=== PATIENT | male | born 1960 | race Caucasian/White ===

== ENCOUNTER 2019-11-03 12:07 | Emergency (ER) | payer OTHER ==
[~2019-11-03] VITALS: Ht 170.2 cm; Wt 69.0 kg
[2019-11-03 13:51] LABS: ABSOLUTE NEUTROPHILS 2.4 thou/uL (1.4-8.2); EOSINOPHILS 0.9 % (0.0-3.0); HEMATOCRIT 43.1 % (42.0-52.0); HEMOGLOBIN 14.8 gm/dL (14.0-18.0); MCH 31.5 pg (26.0-34.0); MCHC 34.3 g/dL (28.0-37.0); MONOCYTES 9.3 % (1.0-8.0); POLYS 55.8 % (36.0-66.0); RBC 4.69 mil/uL (4.50-6.00); RDW 12.7 % (10.5-14.5); WBC 4.3 thou/uL (4.0-11.0)
[2019-11-03 13:57] LABS: ANION GAP 10 mmol/L (7-16); BUN 10 mg/dL (7-18); CALCIUM 8.2 mg/dL (8.5-10.1); CHLORIDE 98 mmol/L (98-107); CO2 23 mmol/L (21-32); CREATININE 0.9 mg/dL (0.7-1.3); GLUCOSE 113 mg/dL (74-106); POTASSIUM 3.1 mmol/L (3.5-5.1); SODIUM 131 mmol/L (136-145)
[2019-11-03 14:07] LABS: ALBUMIN 2.7 g/dL (3.4-5.0); LIPASE 289 U/L (73-393); SGOT 191 U/L (15-37); SGPT 105 U/L (30-65); TOTAL BILIRUBIN 1.8 mg/dL (0.2-1.0); TOTAL PROTEIN 7.4 g/dL (6.4-8.2); TROPONIN-I <0.06 ng/mL (<0.06)
[2019-11-03 14:27] LABS: URINE BILIRUBIN 2+ (Negative); URINE BLOOD NEGATIVE (Negative); URINE CLARITY CLEAR; URINE COLOR YELLOW; URINE GLUCOSE-RANDOM* TRACE (Negative); URINE KETONES 1+ (Negative); URINE LEUKOCYTES-REFLEX NEGATIVE (Negative); URINE PROTEIN (DIPSTICK) 1+ (Negative); URINE SPECIFIC GRAVITY 1.025 (1.005-1.035)
[2019-11-03 14:28] LABS: URINE NITRITE-REFLEX POSITIVE (Negative)
[2019-11-03 14:29] LABS: ICTOTEST (BILI CONFIRMATORY) Positive (Negative)
[2019-11-03 14:37] LABS: BACTERIA-REFLEX 1-9 Few /HPF (None Seen); CASTS None Seen /LPF (None Seen); CRYSTALS None Seen /LPF (None Seen); SQUAMOUS 0-3 Few /LPF (0-3); URINE RBC None Seen /HPF (0-2); URINE WBC-REFLEX None Seen /HPF (0-5)
[2019-11-03 14:58] LABS: ANISOCYTOSIS 1+; PLATELET COUNT 50 thou/uL (150-400)
[2019-11-03] MEDS ORDERED: ZOFRAN ODT4 MG PO (16:03)
[2019-11-03] MEDS ORDERED: CARAFATE 1 GM TA1 GM PO (16:03)
[2019-11-03] MEDS ORDERED: TRAMADOL 50 MG50 MG PO (16:03)
[2019-11-03] MEDS ORDERED: PANTOPRAZOLE SO40 M1 PO (16:03)
[2019-11-03 16:40] VITALS: BP 128/86
--- NOTE | 2019-11-04 07:52 | EKG ---
[facility] [place] [address] ELECTROCARDIOGRAM REPORT Name: JULES MATHUR Room #: DEP [facility].RRosaline#: [id number] Admission: 11/03/19 Attend Phys: Discharge: 11/03/19 Date of : 58 Report #: [id number] THIS REPORT FOR: cc: SIVA - [place]ab[place] family physician/PCP SIVA - [place] family physician/PCP Checo Silverman MD [facility] THIS REPORT FOR: //name// [facility] ED Test Date: 2019-11-03 Test Time: 12:08:06 Pat Name: JULES MATHUR Department: Room: Gender: [employer]: [facility] : 1960 Requested By: Oral Nicohls Order Number: [id number] MD: Checo Silverman Measurements Intervals [place] Rate: 104 P: 75 ID: [id number] QRS: 76 QRSD: 126 T: 57 QT: 371 QTc: 488 Interpretive Statements Sinus tachycardia Right bundle branch block Baseline wander in lead(s) V6 No previous ECG available for comparison Electronically Signed On 11-04-2019 7:51:11 CDT by Checo Silverman [email or web address] <ELECTRONICALLY SIGNED> By: Checo Silverman MD, FACC 11/04/19 [id number] Checo Silverman MD, [facility] /EPI
== END 2019-11-03 16:41 | disposition home or self-care (01) ==
LOC: ER 12:07
PROVIDERS: Emergency Medicine
DX: K29.70 Gastritis, unspecified, without bleeding (principal); D69.6 Thrombocytopenia, unspecified; R11.2 Nausea with vomiting, unspecified; R10.84 Generalized abdominal pain; F17.210 Nicotine dependence, cigarettes, uncomplicated

== ENCOUNTER 2020-02-01 19:56 | Emergency (ER) | payer OTHER ==
[~2020-02-01] VITALS: Ht 167.6 cm; Wt 77.1 kg
[~2020-02-01 19:56] MED LIST: CARAFATE 1 GM TA1 GM PO; PANTOPRAZOLE SO40 M1 PO; TRAMADOL 50 MG50 MG PO; ZOFRAN ODT4 MG PO
[2020-02-01 20:28] LABS: ABSOLUTE NEUTROPHILS 1.9 thou/uL (1.4-8.2); BASOPHILS 0.8 % (0.0-2.0); EOSINOPHILS 0.9 % (0.0-3.0); HEMOGLOBIN 14.7 gm/dL (14.0-18.0); LYMPHOCYTES 50.5 % (24.0-44.0); MCH 32.6 pg (26.0-34.0); MCHC 34.2 g/dL (28.0-37.0); MCV 95.1 fL (80.0-100.0); MONOCYTES 10.9 % (1.0-8.0); PLATELET COUNT 106 thou/uL (150-400); POLYS 36.9 % (36.0-66.0); RBC 4.52 mil/uL (4.50-6.00); RDW 12.7 % (10.5-14.5); WBC 5.1 thou/uL (4.0-11.0)
[2020-02-01 20:35] LABS: ANION GAP 10 mmol/L (7-16); BUN 11 mg/dL (7-18); CALCIUM 7.9 mg/dL (8.5-10.1); CHLORIDE 98 mmol/L (98-107); CO2 25 mmol/L (21-32); CREATININE 1.1 mg/dL (0.7-1.3); GLUCOSE 130 mg/dL (74-106); POTASSIUM 4.2 mmol/L (3.5-5.1)
[2020-02-01 20:37] LABS: SODIUM 133 mmol/L (136-145)
[2020-02-01 20:45] LABS: ALBUMIN 2.5 g/dL (3.4-5.0); LIPASE 361 U/L (73-393); SGOT 153 U/L (15-37); SGPT 85 U/L (30-65); TOTAL BILIRUBIN 0.7 mg/dL (0.2-1.0); TOTAL PROTEIN 7.4 g/dL (6.4-8.2); TROPONIN-I <0.06 ng/mL (<0.06)
[2020-02-02 00:16] VITALS: BP 141/87
--- NOTE | 2020-02-02 08:30 | EKG ---
[facility] [place] [address] [address] ELECTROCARDIOGRAM REPORT Name: JULES MATHUR Room #: DEP [facility]..#: [id number] Admission: 02/01/20 Attend Phys: Discharge: 02/02/20 Date of : 58 Report #: [id number] THIS REPORT FOR: cc: SIVA - No family physician/PCP SIVA - No family physician/PCP Checo Silverman MD [facility] THIS REPORT FOR: //name// [facility] ED Test Date: 2020-02-01 Test Time: 19:58:45 Pat Name: JULES MATHUR Department: Room: Gender: [employer]: [facility] : 1960 Requested By: Francisco Santacruz Order Number: [id number] MD: Checo Silverman Measurements Intervals [place] Rate: 89 P: 77 DC: 189 QRS: 72 QRSD: 141 T: 67 QT: 407 QTc: 496 Interpretive Statements Sinus rhythm Right bundle branch block Compared to ECG 11/03/2019 12:08:06 Sinus tachycardia no longer present Electronically Signed On 02-02-2020 8:30:00 CDT by Checo Silverman [email or web address] <ELECTRONICALLY SIGNED> By: Checo Silverman MD, FAC 02/02/2030 57 57 Checo Silverman MD, [facility] /EPI
== END 2020-02-02 00:18 | disposition home or self-care (01) ==
LOC: ER 19:56
PROVIDERS: Emergency Medicine
DX: R55 Syncope and collapse (principal); R07.9 Chest pain, unspecified; R51 Headache; R05 Cough; R06.02 Shortness of breath; R10.13 Epigastric pain; F17.210 Nicotine dependence, cigarettes, uncomplicated; Z90.49 Acquired absence of other specified parts of digestive tract; Z79.899 Other long term (current) drug therapy